=== PATIENT | female | born 1990 | race Caucasian/White ===

== ENCOUNTER 2016-06-13 05:53 | Inpatient (IN) | payer BC ==
[2016-06-13] MEDS ORDERED: Buffered Lidocaine 1% SYR 3ML* 3 ML/SYR SYRINGE INTRADERM ONE (06:00)
[2016-06-13] MEDS ORDERED: Sodium Citrate/Citric Acid* 15 ML UDC PO ONE (06:00)
[2016-06-13] MEDS ORDERED: Sodium Citrate/Citric Acid* 15 ML UDC ONE (06:03)
[2016-06-13] MEDS ORDERED: ceFOXitin 2 GM IVPREMIX* 2 GM/50 ML BAG ONE (06:03)
[2016-06-13] MEDS ORDERED: OXYTOCIN* 10 UNITS/ML 1 ML VIAL ONE (07:21)
[2016-06-13] MEDS ORDERED: Morphine PF AMP (0.5MG/ML)* 5 MG/10 ML AMP ONE (07:21)
[2016-06-13] MEDS ORDERED: Phenylephrine IV* 40 MCG/ML 10 ML SYRINGE ONE (07:21)
[2016-06-13] MEDS ORDERED: Phenylephrine INJ* 10 MG/ML 1 ML VIAL (10 MG) ONE (07:22)
[2016-06-13] MEDS ORDERED: Ondansetron INJ* 2 MG/ML VIAL IV PRN ×2 (08:21→08:25)
[2016-06-13] MEDS ORDERED: fentaNYL* 50 MCG/ML 2 ML VIAL (100 MCG VIAL) IV PRN (08:21)
[2016-06-13] MEDS ORDERED: Naloxone* 0.4 MG/ML 1 ML VIAL IV PRN (08:25)
[2016-06-13] MEDS ORDERED: diPHENhydraMINE IV* 50 MG/ML 1 ml VIAL (BENADRYL) IV PRN (08:25)
[2016-06-13] MEDS ORDERED: oxyCODONE/Acetamin 5/325 MG* TAB PO PRN ×2 (08:25)
[2016-06-13] MEDS ORDERED: Metoclopramide IV* 5 MG/ML 2 ML VIAL ONE (08:46)
[2016-06-13] MEDS ORDERED: Ondansetron INJ* 2 MG/ML VIAL ONE (08:46)
[2016-06-13] MEDS ORDERED: Famotidine IV* 10 MG/ML 2 ML (20 mg) ONE (08:46)
[2016-06-13] MEDS ORDERED: Oxytocin in LR* 20 UNITS/1,000 ML BAG IVPB ONE (10:50)
[2016-06-13] MEDS ORDERED: Oxytocin in LR* 20 UNITS/1,000 ML BAG IVPB SCH (13:00)
[2016-06-13] MEDS ORDERED: Acetaminophen TAB* 325 MG PO PRN (13:00)
[2016-06-13] MEDS ORDERED: Glycerin ADULT SUPP PR PRN (13:00)
[2016-06-13] MEDS ORDERED: Dibucaine 1% 28.35 GM TUBE PR PRN (13:00)
[2016-06-13] MEDS ORDERED: Witch Hazel PAD* JAR TOPICAL PRN (13:00)
[2016-06-13] MEDS: Docusate CAP* 100 MG PO SCH ×2 (16:24→22:38)
[2016-06-13] MEDS: Ketorolac INJ* 30 MG/ML 1 ML VIAL IV PRN ×2 (16:24→22:39)
--- NOTE | 2016-06-13 21:33 | OP ---
OPERATIVE REPORT: DATE OF OPERATION: 06/13/16 DATE OF : 89 SURGEON: Landon Estrada MD SALES PORTER: Clemencia rizvi CNM ANESTHESIA: Spinal. PRE-OP DIAGNOSES: Previous section, desires permanent sterilization. POST-OP DIAGNOSES: Previous section, desires permanent sterilization plus pelvic adhesions . OPERATIVE PROCEDURE: Low transverse section and bilateral tubal ligation. ESTIMATED BLOOD LOSS: 800 cc. SPECIMEN: Includes bilateral fallopian tubes. FINDINGS: This is a 25-year-old 2, para 1, with a previous section who desired frieda ctive repeat and permanent sterilization. At the time of , she had omental adhesions to the anterior peritoneum as well as tubal adhesions down to the ovarian fossa. She also had a viable fe male, Apgars 8 and 9. Weight was 7 pounds 7 ounces. DESCRIPTION OF PROCEDURE: The patient identified and procedure identified as low transverse cesarea n section. The patient was taken to the operating room, prepped and draped in the usual fashion in the left lateral recumbent position under spinal anesthesia. A Pfannenstiel incision was made throu gh the old incision and carried down through the fat, fascia, and peritoneum. An John retractor w as placed after lysis of some of the adhesions. A transverse incision was made in the lower uterine segment and extended laterally using bandage scissors. The above was delivered through the incision with ease. The cord was doubly clamped and then cut and the infant was handed to awaiting ham rolling machine operator. Cord blood was obtained. Placenta delivered spontaneously. The uterus was wiped out with a wet lap sponge. Uterine incision was then closed using 0 Polysorb in a running fashion. A se cond layer was used to imbricate the first layer. Good hemostasis was verified and achieved with 0 Polysorb figure-of-8 sutures. An attempt was made to visualize the right fallopian tube. This could not be done with the John a nd the John was removed. Then, the uterus was exteriorized. The fimbria could be identified with the uterus exteriorized. The right fallopian tube was grasped at the fimbriated ends and ligated x2 and the fimbria was excised. The same procedure was carried out at the left after following it out to its fimbriated ends. Because of the very short segment that was able to be obtained due to the a dhesions, a hemostat was placed over the more proximal portion of the fallopian tube and unipolar ca utery was utilized on this segment of tube bilaterally. Good hemostasis was verified. The uterus w as placed back in the abdominal cavity. The peritoneum was then closed using 3-0 Polysorb in a runn ing fashion. The omental adhesions were left in situ. The subfascial layers were hemostatic and th e fascia was closed using 0 Polysorb in a running fashion. Copious irrigation was utilized and sucti oned out. The fascia was closed using 0 Polysorb in a running fashion. Good hemostasis was utilize d and suctioned out and the skin was closed with 4-0 Monocryl in a subcuticular fashion. All sponge and instrument counts were correct and the patient returned to the recovery room in stable conditio n. [id number]/[id number] #: [id number]
[2016-06-13] MEDS: Simethicone TAB* 80 MG TAB.CHEW PO SCH (22:38)
[2016-06-14] MEDS ORDERED: Zolpidem TAB* 5 MG PO PRN (00:26)
[2016-06-14] MEDS ORDERED: oxyCODONE/Acetamin 5/325 MG* TAB PO PRN ×2 (00:26)
[2016-06-14] MEDS: Ketorolac INJ* 30 MG/ML 1 ML VIAL IV PRN (06:04)
[2016-06-14 07:59] LABS: Hematocrit 25 % (35-47); Hemoglobin 8.4 g/dl (12.0-16.0); Mean Corpuscular HGB Conc 33 g/dl (31-36); Mean Corpuscular Hemoglobin 26 pg (27-31); Mean Corpuscular Volume 78 fL (80-97); Mean Platelet Volume 10 um3 (7.4-10.4); Red Blood Count 3.24 10^6/ul (4.0-5.4); Red Cell Distribution Width 16 % (10.5-15); White Blood Count 16.4 10^3/ul (3.5-10.8)
[2016-06-14] MEDS: Docusate CAP* 100 MG PO SCH ×3 (09:22→19:46)
[2016-06-14] MEDS: Simethicone TAB* 80 MG TAB.CHEW PO SCH ×4 (09:23→22:05)
[2016-06-14] MEDS: Ferrous Gluconate TAB* 324 MG TAB PO SCH ×2 (10:39→19:46)
[2016-06-14] MEDS: Ibuprofen TAB* 600 MG PO PRN ×2 (15:45→22:05)
[2016-06-15] MEDS: Ibuprofen TAB* 600 MG PO PRN ×3 (06:06→17:44)
[2016-06-15 08:15] VITALS: BP 127/58
[2016-06-15] MEDS: Simethicone TAB* 80 MG TAB.CHEW PO SCH ×4 (09:11→21:10)
[2016-06-15] MEDS: Docusate CAP* 100 MG PO SCH ×3 (09:11→21:10)
[2016-06-15] MEDS: Ferrous Gluconate TAB* 324 MG TAB PO SCH ×2 (09:11→21:09)
[2016-06-15] MEDS ORDERED: Tetan/Diph/Pertus SYR(Tdap)* 0.5 ML SYR(BOOSTRIX) use SYR IM ONE (10:30)
[2016-06-16] MEDS: Ibuprofen TAB* 600 MG PO PRN ×2 (00:02→09:36)
[2016-06-16] MEDS: Ferrous Gluconate TAB* 324 MG TAB PO SCH (09:36)
[2016-06-16] MEDS: Simethicone TAB* 80 MG TAB.CHEW PO SCH (09:37)
[2016-06-16] MEDS: Docusate CAP* 100 MG PO SCH (09:37)
== END 2016-06-16 12:10 | disposition home or self-care (01) | DRG 541 ==
LOC: MCHOB 05:53
PROVIDERS: ADMIT Obstetrics & Gynecology; ATTEND Obstetrics & Gynecology
PROC: 0UB70ZZ Excision of Bilateral Fallopian Tubes, Open Approach (ICD-10-PCS; principal; 2016-06-13 07:45)
DX: O34.211 Maternal care for low transverse scar from previous cesarean delivery (principal); Z37.0 Single live birth; D64.9 Anemia, unspecified; O99.02 Anemia complicating childbirth; O99.334 Smoking (tobacco) complicating childbirth; Z3A.39 39 weeks gestation of pregnancy; Z30.2 Encounter for sterilization
CPT/HCPCS: 36415; 85025; 88302; 90715; A9270-GY; J0694; J1885; J2405; J2590; J2765